=== PATIENT | female | born 1995 | race Caucasian/White ===

== ENCOUNTER → 2022-06-15 01:50 | Observation (INO) ==
[2022-06-14 23:27] LABS: Basophils # 0.1 K/mcL (0.0-0.2); Basophils % 0.6 %; Eosinophils # 0.2 K/mcL (0.0-0.6); Eosinophils % 1.9 %; Hematocrit 34.1 % (35.3-44.9); Hemoglobin 11.8 g/dL (11.5-15.4); Immature Granulocytes % 0.5 % (0-4); Lymphocytes # 2.3 K/mcL (0.6-4.6); Lymphocytes % 28.1 %; Mean Corpuscular HGB Conc 34.6 g/dL (31.6-35.5); Mean Corpuscular Volume 86.8 fL (83.0-100.0); Mean Platelet Volume 11.8 fL (9.4-12.4); Monocytes # 0.7 K/mcL (0.0-1.3); Monocytes % 8.5 %; Platelet Count 264 K/mcL (140-400); Red Blood Count 3.93 M/mcL (3.82-4.97); Red Cell Distribution Width 12.3 % (11.5-14.5); Segmented Neutrophils % 60.4 %; White Blood Count 8.3 K/mcL (4.3-11.1)
[2022-06-14 23:37] LABS: Creatinine,Urine 20 mg/dL
[2022-06-14 23:45] LABS: Alanine Aminotransferase 19 Units/L (7-52); Aspartate Amino Transferase 19 Units/L (13-39); BUN/Creatinine Ratio 15 (6-26); Blood Urea Nitrogen 11 mg/dL (6-20); Lactate Dehydrogenase 141 Units/L (140-271); eGFR For African Americans > 60 (> 60); eGFR For Non-African Americans > 60 (> 60)
== END | disposition home or self-care (01) ==
LOC: 1NENULAB
PROVIDERS: ADMIT Advanced Practice Midwife; ATTEND Advanced Practice Midwife

== ENCOUNTER 2022-06-21 03:16 | Inpatient (IN) ==
[2022-06-20 20:11] LABS: Basophils # 0.1 K/mcL (0.0-0.2); Basophils % 0.7 %; Eosinophils # 0.2 K/mcL (0.0-0.6); Eosinophils % 1.7 %; Hemoglobin 12.5 g/dL (11.5-15.4); Immature Granulocytes % 0.3 % (0-4); Lymphocytes # 2.4 K/mcL (0.6-4.6); Lymphocytes % 27.5 %; Mean Corpuscular HGB Conc 34.7 g/dL (31.6-35.5); Mean Corpuscular Hemoglobin 29.9 pg (28.0-33.3); Mean Corpuscular Volume 86.1 fL (83.0-100.0); Mean Platelet Volume 12.2 fL (9.4-12.4); Monocytes # 0.5 K/mcL (0.0-1.3); Monocytes % 5.8 %; Neutrophils # 5.5 K/mcL (1.6-8.9); Platelet Count 268 K/mcL (140-400); Red Blood Count 4.18 M/mcL (3.82-4.97); Red Cell Distribution Width 12.8 % (11.5-14.5); White Blood Count 8.6 K/mcL (4.3-11.1)
[2022-06-20 20:17] LABS: Amphetamine Screen,Urine Negative ng/mL (Cutoff=1000); Barbiturate Screen,Urine Negative ng/mL (Cutoff=200); Benzodiazepines Screen,Urine Negative ng/mL (Cutoff=200); Cannabinoid Screen,Urine Negative ng/mL (Cutoff = 50); Cocaine Screen,Urine Negative ng/mL (Cutoff= 300); Opiate Screen,Urine Negative ng/mL (Cutoff=300); Phencyclidine Screen,Urine Negative ng/mL (Cutoff=25)
[2022-06-20 20:22] LABS: Creatinine,Urine 20 mg/dL
[2022-06-20 20:26] LABS: Alanine Aminotransferase 21 Units/L (7-52); Aspartate Amino Transferase 19 Units/L (13-39); BUN/Creatinine Ratio 13 (6-26); Blood Urea Nitrogen 10 mg/dL (6-20); Lactate Dehydrogenase 139 Units/L (140-271); eGFR For African Americans > 60 (> 60); eGFR For Non-African Americans > 60 (> 60)
[~2022-06-21 03:16] MED LIST: *HR* HYDROmorphone PF 0.5 MG/0.5 ML SYRINGE IVP PRN; CeFAZolin 2,000 MG/120 ML BAG IVPB ONE; Famotidine 20 MG/2 ML VIAL IVP PRN; Metoclopramide 10 MG/2 ML VIAL IVP PRN; Naloxone 0.4 MG/ML INJ IVP PRN; Ondansetron 4 MG/2 ML VIAL IVP PRN; Ringers Solution, Lactated 1,000 ML IVC ONE
[2022-06-21] MEDS ORDERED: Oxytocin 30 UNIT/503 ML BAG IVC SCH ×2 (03:30→09:51)
[2022-06-21] MEDS ORDERED: Ringers Solution, Lactated 1,000 ML IVC SCH (03:30)
[2022-06-21] MEDS ORDERED: *HR* FentaNYL (PF) 100 MCG/2 ML VIAL ONE (04:30)
[2022-06-21] MEDS ORDERED: *HR* Morphine Sulfate/PF 10 MG/10 ML AMPUL ONE (04:30)
[2022-06-21] MEDS ORDERED: Ketorolac 30 MG/ML VIAL ONE (04:30)
[2022-06-21] MEDS ORDERED: Ondansetron 4 MG/2 ML VIAL ONE (04:30)
[2022-06-21] MEDS ORDERED: EPHEDrine 50 MG/ML VIAL ONE (04:30)
[2022-06-21] MEDS ORDERED: Acetaminophen IV 1,000 MG/100 ML BAG IVPB ONE (05:48)
[2022-06-21] MEDS ORDERED: Ringers Solution, Lactated 1,000 ML ONE (06:47)
[2022-06-21] MEDS ORDERED: Metoclopramide 10 MG/2 ML VIAL IVP PRN (09:51)
[2022-06-21] MEDS ORDERED: *HR* OxyCODONE Immed Rel 5 MG TABLET PO PRN (09:51)
[2022-06-21] MEDS ORDERED: Ondansetron 4 MG/2 ML VIAL IVP PRN (09:51)
[2022-06-21] MEDS ORDERED: Rho Immune Globulin 1,500 UNIT SYRINGE IM ONE (09:51)
[2022-06-21] MEDS: Simethicone 80 MG TAB.CHEW PO PRN (10:42)
[2022-06-21] MEDS: Ibuprofen 600 MG TABLET PO SCH ×3 (10:42→22:28)
[2022-06-21] MEDS: Prenatal Vit/FA 1 EACH TABLET PO SCH (10:43)
[2022-06-21] MEDS: Acetaminophen 325 MG TABLET PO SCH ×3 (10:43→22:28)
[2022-06-21] MEDS: Ringers Solution, Lactated 1,000 ML IVC SCH ×2 (12:29→21:15)
[2022-06-22 04:10] LABS: Basophils # 0.1 K/mcL (0.0-0.2); Basophils % 0.6 %; Eosinophils # 0.1 K/mcL (0.0-0.6); Eosinophils % 0.8 %; Hematocrit 27.2 % (35.3-44.9); Hemoglobin 9.3 g/dL (11.5-15.4); Immature Granulocytes % 0.4 % (0-4); Lymphocytes # 2.5 K/mcL (0.6-4.6); Lymphocytes % 15.9 %; Mean Corpuscular HGB Conc 34.2 g/dL (31.6-35.5); Mean Corpuscular Hemoglobin 30.4 pg (28.0-33.3); Mean Corpuscular Volume 88.9 fL (83.0-100.0); Mean Platelet Volume 11.8 fL (9.4-12.4); Monocytes # 0.9 K/mcL (0.0-1.3); Monocytes % 5.5 %; Neutrophils # 12.1 K/mcL (1.6-8.9); Platelet Count 199 K/mcL (140-400); Red Blood Count 3.06 M/mcL (3.82-4.97); Red Cell Distribution Width 13.2 % (11.5-14.5); Segmented Neutrophils % 76.8 %; White Blood Count 15.7 K/mcL (4.3-11.1)
[2022-06-22] MEDS: Ibuprofen 600 MG TABLET PO SCH ×3 (04:27→16:48)
[2022-06-22] MEDS: Acetaminophen 325 MG TABLET PO SCH ×3 (04:28→16:48)
[2022-06-22] MEDS: Prenatal Vit/FA 1 EACH TABLET PO SCH (07:58)
[2022-06-22 18:09] VITALS: O2SAT 99
[2022-06-22] MEDS: Simethicone 80 MG TAB.CHEW PO PRN (20:30)
[2022-06-22] MEDS ORDERED: Acetaminophen 325 MG TABLET PO SCH (22:19)
[2022-06-23] MEDS: Ibuprofen 600 MG TABLET PO SCH ×2 (06:37→12:52)
[2022-06-23] MEDS: Acetaminophen 325 MG TABLET PO SCH ×2 (06:38→12:52)
[2022-06-23] MEDS: Prenatal Vit/FA 1 EACH TABLET PO SCH (07:44)
[2022-06-23 07:56] VITALS: BP 125/89; PULSE 74; TEMP 98.3
[2022-06-23] MEDS: Simethicone 80 MG TAB.CHEW PO PRN (08:56)
== END 2022-06-23 14:18 | disposition home or self-care (01) | DRG 788 ==
LOC: 1NENULAB → 1NENUOBS 09:26
PROVIDERS: ADMIT Student in an Organized Health Care Education/Training Program; ATTEND Student in an Organized Health Care Education/Training Program